=== PATIENT | male | born 1985 | race Caucasian/White ===

== ENCOUNTER 2025-01-19 17:18 | Emergency (ER) | payer OTHER, BC ==
[2025-01-19] MEDS: Ketorolac 30 MG/ML SDV IM ONE (18:12)
[2025-01-19] MEDS: Orphenadrine 60 MG/2 ML Inj IM ONE (18:13)
== END 2025-01-19 18:34 | disposition home or self-care (01) ==
LOC: VM.ED 17:18
DX: M54.50 Low back pain, unspecified (principal)
CPT/HCPCS: 96372; 99283; J1885; J2360